=== PATIENT | female | born 1965 | race Caucasian/White ===

== ENCOUNTER 2018-01-30 11:49 | Emergency (ER) | payer OTHER ==
[~2018-01-30] VITALS: Ht 182.9 cm; Wt 113.4 kg
[~2018-01-30 11:49] MED LIST: ADVIL PM; ALBU90OI; ALBU90OI INH; AMIT25 PO; ANTIDEPRESSANT PO; Antivert25 MG PO; BACL10; BECL80OI INH; CELE100; CLON.5 PO; CLON1 PO; CODACE30 PO; CYCL10 PO; DIHYDROERGOTAMIN1 ML NS; DILANTIN; DIMATAP; ESCI20 PO; FURO40 PO; HYDACE25S PR; IBUP200; LAMICTAL XR200 MG PO; LAMO100; LAMO100 PO; LAMOTRIGINE250 MG PO; LEVA.63IS IH; LEVA.63IS INH; LEVO750 PO; LEVSOD100 PO; LEVSOD88 PO; LOPE2C PO; LORA1; LORA1 PO; LOSA25 PO; LOSA50 PO; MECL12.5 PO; MECL25 PO; MELO7.5 PO; NAPR500; OXYACE5T PO; PHENY100ER PO; PIRO10 PO; PIRO20 PO; POLY17UD PO; POTA8 PO; POTCHL20ER PO; PRAHYD1AE TOP; PROM25 PO; Percocet 5-3251 EACH PO; Prednisone20 MG PO; RXHYD5325 PO; SENN187 PO; TRAM50 PO; VENL37.5ER PO; Zofran Odt8 MG SL; Zofran8 MG PO; [UNRECOGNIZED DRUG - REMARK]
[2018-01-30] MEDS ORDERED: LAMOTRIGINE250 MG PO (12:12)
[2018-01-30] MEDS ORDERED: Mobic7.5 MG PO (12:12)
== END 2018-01-30 12:26 | disposition home or self-care (01) ==
LOC: ER 11:49
DX: Z76.0 Encounter for issue of repeat prescription (principal); I10 Essential (primary) hypertension; E03.9 Hypothyroidism, unspecified; J45.909 Unspecified asthma, uncomplicated; F32.9 Major depressive disorder, single episode, unspecified; Z88.8 Allergy status to other drugs, medicaments and biological substances; Z88.1 Allergy status to other antibiotic agents; Z88.0 Allergy status to penicillin; Z79.899 Other long term (current) drug therapy
CPT/HCPCS: 99282